=== PATIENT | female | born 1960 | race Caucasian/White ===

== ENCOUNTER 2016-08-04 10:23 | Emergency (ER) | payer OTHER ==
[~2016-08-04] VITALS: Ht 149.9 cm; Wt 79.5 kg
[2016-08-04 10:25] VITALS: BP 163/107
== END 2016-08-04 11:52 | disposition home or self-care (01) ==
LOC: ED 10:23
DX: S52.125A Nondisplaced fracture of head of left radius, initial encounter for closed fracture (principal); S52.124A Nondisplaced fracture of head of right radius, initial encounter for closed fracture; V87.8XXA Person injured in other specified noncollision transport accidents involving motor vehicle (traffic), initial encounter; Y93.55 Activity, bike riding; Y99.8 Other external cause status; Y92.89 Other specified places as the place of occurrence of the external cause

== ENCOUNTER 2016-12-05 11:20 | Emergency (ER) | payer OTHER ==
[2016-12-05 15:22] VITALS: BP 144/94
== END 2016-12-05 15:22 | disposition home or self-care (01) ==
LOC: ED 11:20
DX: M79.672 Pain in left foot (principal)
CPT/HCPCS: Q0092

== ENCOUNTER 2016-12-19 16:15 | Emergency (ER) | payer OTHER ==
[~2016-12-19] VITALS: Ht 149.9 cm; Wt 77.6 kg
[2016-12-19 17:30] LABS: BASOPHIL % 0.1 % (0-2); PLATELET COUNT 194 x10^3mcL (130-400); RED CELL DISTRIBUTION WIDTH 13.1 % (11.5-14.5)
[2016-12-19 17:38] LABS: CALCIUM 8.7 mg/dL (8.5-10.1); CARBON DIOXIDE 29.4 mmol/L (21-32); CHLORIDE SERUM 104 mmol/L (98-107); CREATININE SERUM 0.7 mg/dL (0.6-1.0); GFR1 > 60 mL/min; GLUCOSE SERUM 150 mg/dL (74-106); POTASSIUM SERUM 3.5 mmol/L (3.5-5.1); SODIUM SERUM 139 mmol/L (136-145)
[2016-12-19 17:40] VITALS: BP 125/92
[2016-12-19 17:43] LABS: ALKALINE PHOSPHATASE 102 U/L (46-116); ALT/SGPT 28 U/L (14-59); AST/SGOT 18 U/L (15-37); BILIRUBIN TOTAL 0.4 mg/dL (0.20-1.00); TOTAL PROTEIN, SERUM 7.5 g/dL (6.4-8.2)
[2016-12-19 17:44] LABS: ALBUMIN 3.3 g/dL (3.4-5.0)
== END 2016-12-19 18:00 | disposition home or self-care (01) ==
LOC: ED 16:15
PROVIDERS: Emergency Medicine
DX: R07.89 Other chest pain (principal)
CPT/HCPCS: 36415; 83880

== ENCOUNTER 2016-12-25 11:43 | Inpatient (IN) | payer OTHER ==
[~2016-12-25] VITALS: Ht 149.9 cm; Wt 81.2 kg
--- NOTE | 2016-12-25 12:19 | NUR ---
PT BIB SELF C/C LT BOTTOM OF FOOT WOUND NOTED BLISTER LOOKING PT STS X [address] CARLO CEDEÑO
[2016-12-25 12:58] LABS: BASOPHIL % 0.5 % (0-2); PLATELET COUNT 213 x10^3mcL (130-400)
--- NOTE | 2016-12-25 13:01 | NUR ---
STARTED ON IV ATB
[2016-12-25 13:06] LABS: CALCIUM 8.8 mg/dL (8.5-10.1); CARBON DIOXIDE 24.7 mmol/L (21-32); CHLORIDE SERUM 107 mmol/L (98-107); CREATININE SERUM 0.9 mg/dL (0.6-1.0); GFR1 > 60 mL/min; GLUCOSE SERUM 151 mg/dL (74-106); POTASSIUM SERUM 3.3 mmol/L (3.5-5.1); SODIUM SERUM 142 mmol/L (136-145)
--- NOTE | 2016-12-25 13:06 | NUR ---
IV ANTIBIOTIC INFUSION STARTED PER MD ORDERS SEE EMAR. PT AAOX4 NO DISTRESS. INST TO REPORT ANY ADVERSE EFFECT. CALL LIGHT IN REACH. IV SITE PATENT. PRIMARY NURSE NELIA RESUMING CARE OF PT.
[2016-12-25 13:11] LABS: ALBUMIN 3.5 g/dL (3.4-5.0); ALKALINE PHOSPHATASE 108 U/L (46-116); ALT/SGPT 44 U/L (14-59); AST/SGOT 25 U/L (15-37); BILIRUBIN TOTAL 0.45 mg/dL (0.20-1.00); TOTAL PROTEIN, SERUM 7.3 g/dL (6.4-8.2)
--- NOTE | 2016-12-25 14:38 | NUR ---
PLEASE ENTER FULL NAMES OF PLANT INSPECTOR/RN Patient data collected by (PLANT INSPECTOR):Ibis RAY Assessment reviewed and completed by (RN): Joy CORDOBA
--- NOTE | 2016-12-25 15:10 | NUR ---
RECEIVED REPORT FROM NELIA RICHARDS. PT IN NAD
--- NOTE | 2016-12-25 15:37 | NUR ---
REPORT GIVEN TO ARPITA GOMES
--- NOTE | 2016-12-25 15:45 | NUR ---
REC'D PT FROM ER VIA [facility]. PT IS AAOX4. TELE #2 SR. RESP EVEN AND UNLABORED. NO SOB NOTED. PT C/O 12/02 LEFT FOOT PAIN. WOUND NOTED TO BOTTOM OF LEFT FOOT. WOUND CULTURE OBTAINED. PICTURE TAKEN. IV NOTED TO LFA. INTACT AND PATENT. ORIENTED PT TO CALL LIGHT. BED IN LOWEST POSITION. WILL ENDORSE TO PRIMARY RN.
[2016-12-25 15:52] LABS: CHOLESTEROL/HDL RATIO 3.3; MAGNESIUM 1.8 mg/dL (1.8-2.4); PHOSPHOROUS 2.8 mg/dL (2.5-4.9)
[2016-12-25 15:58] VITALS: BP 137/84
[2016-12-25 16:06] LABS: FREE T4 0.82 ng/dL (0.76-1.46); FREE THYROXINE INDEX 2.2 ug/dL (1.4-4.5); T4(THYROXINE) 6.6 ug/dL (4.7-13.3)
[2016-12-25 16:40] LABS: T3 TOTAL 1.03 ng/mL
--- NOTE | 2016-12-25 18:42 | NUR ---
AAO TIMES 4. PT HAD A DEBRIDMENT OF LEFT FOOT BY PODIATRY. PHOTO WAS TAKEN BEFORE AND AFTER THE PROCEDURE. DRESSING TO LEFT FOOT CDI. TELE # 2 SR. IV SITE CDI. COOOERATIVE, ASKS A LOT OF QUESTIONS, REPEATEDLY. GETS ANXIOUS EASILY. COOPERATIVE.
--- NOTE | 2016-12-25 19:30 | NUR ---
PT IS ALERT AND ORIENTED X4. PLEASANT AND COOPERATIVE. CLEAR LUNGS ON AUSCULTATIONS BILATERALLY UPPER AND LOWER BASES. ROOM AIR. CXR-NEGATIVE. STILL HAS IV NS AT 100 ML PER HOUR INFUSING WELL IN THE LEFT FOREARM. S/P DEBRIDEMENT LEFT FOOT/WART/BLISTER, DRESSING INTACT WITH AYDE BANDAGE. US ARTERIAL AND VENOUS DONE BOTH LEGS, AWAITING RESULT. STILL GETTING CLEOCIN IV EVERY 6 HOURS NO ADVERSE REACTION NOTED. WILL CONTINUE TO MONITOR.
[2016-12-25 20:39] VITALS: BP 109/59
[2016-12-26 05:15] VITALS: BP 126/81
--- NOTE | 2016-12-26 05:28 | NUR ---
PT C/O MODERATE LEFT FOOT ULCER PAIN 09/01. MEDICATED WITH NORCO 1 TAB PO AZUL MONITOR. CLEOCIN IV ANTIBIOTIC INFUSING. TOLERATED WELL FOR INFECTED LEFT FOOT. PT AMBULATED AROUND THE HALLWAY AND ALSO TOLERATED WELL. STILL HAS IV NS AT 100 ML PER HOUR. WILL MONITOR.
[2016-12-26 06:10] LABS: BASOPHIL % 0.4 % (0-2); PLATELET COUNT 208 x10^3mcL (130-400); RED CELL DISTRIBUTION WIDTH 13.1 % (11.5-14.5)
[2016-12-26 06:13] LABS: CALCIUM 8.5 mg/dL (8.5-10.1); CARBON DIOXIDE 24.5 mmol/L (21-32); CHLORIDE SERUM 106 mmol/L (98-107); CREATININE SERUM 0.5 mg/dL (0.6-1.0); GFR1 > 60 mL/min; GLUCOSE SERUM 88 mg/dL (74-106); POTASSIUM SERUM 4.4 mmol/L (3.5-5.1); SODIUM SERUM 141 mmol/L (136-145)
--- NOTE | 2016-12-26 07:15 | NUR ---
RECEIVED Pt. AAOX4 RESPIRATIONS EVEN AND UNLABORED RA. DENIES PAIN/DISCOMFORT AT THIS TIME. NO DISTRESS NOTED. TELE IN PLACE HR 78. IVF RUNNING TO UV LFA PATENT AND INTACT. LEFT FOOT ACEWRAPPED CDI. BED LOW/LOCKED. CALL LIGHT IN REACH. WILL CONTINUE TO MONITOR.
--- NOTE | 2016-12-26 08:15 | NUR ---
MADE ROUNDS WITH DR. DELCID AND MEDICINE TEAM, Pt. TO HAVE BLE U.S. AND AGREED WITH PLAN OF CARE.
[2016-12-26 09:00] VITALS: BP 112/65
--- NOTE | 2016-12-26 09:22 | NUR ---
POST OP SHOE FOR LEFT FOOT GIVEN TO Pt.
[2016-12-26 12:49] VITALS: BP 139/82
[2016-12-26 13:25] LABS: microscopic required? NO
[2016-12-26 13:33] LABS: UA SPECIFIC GRAVITY 1.015 (1.005-1.035); urine erythrocyte NEGATIVE (NEGATIVE)
[2016-12-26 13:56] LABS: AMPHETAMINE QUAL UR POSITIVE (NEG <=1000)
--- NOTE | 2016-12-26 15:03 | NUR ---
Initial Nutrition Assessment Dx: infected left foot ulcer PMHx: Umbilical hernia PSHx: (x2), Umbilical hernia repair x2 Labs: (12/26) B, Cr:0.5L, (12/25) LDL:112H, A1c:6.1 Meds:Colace, Humulin, Lactinex, NS IV, Zofran, Heparin Diet:CCHO PO Intake:12/26: B:100%, L:100% Ht: 59in, 4'11" Wt: 179#, 81.22kg BMI: 36.2kg/m2 (obesity class II) IBW:98#, 44kg %IBW:183% adj bw:118#,54kg UBW:165-170# per pt Age:56 y/o female Food Allergies:NKFA Skin: 0.2 x 0.5 x 0.4 cm ulceration sub-5th metatarsal head with sanguinous drainage s/p I&D. Brandon: 20 Edema:None GI:active bowel sounds Last BM:12/24 Pt admitted with poss [id number] Stage II Left Foot Pressure Ulcer and Hypokalemia, 3.3, per H&P. Per bed huddle this morning, pt had irrigation and debridement of infected foot ulcer. Pt will be staying for continued IV antibiotics. During visit, observed pt laying in bed. Pt reports to having a good appetite with no c/o N/V/D/C. Pt requested DM diet education since pt is pre-diabetic. Problem with: N: No V:No D: No C:No Problems with: Chewing:No Swallowing: No Current appetite: Good Recent wt change:+9# %wt change:-5% Vitamin/Supplement use:No Special diet at home:Regular Physical activity:walking and biking Education: provided pt with diabetic diet education. Pt said she would read handout later because she wanted to take a nap. Estimated Nutritional Needs Based on adjusted body weight 54kg Energy: 1350-1620kcal/d (25-30-kcal/kg for wound healing) Protein: 58-81g/d (1.25-1.5g/kg for wound healing) Fluid: 1620ml/d (30ml/kg for wound healing ) or per doctor Nutrition Diagnosis 1. Increased nutrient needs related to altered skim integrity as evidenced by pt with Stage II left foot pressure ulcer. Intervention 1. Recommend Theragran MVI, Vit C 500mg BID and Zinc sulfate 220ml daily. Monitor/Evaluate Goal: PO intake at least 75% of estimated needs and wound healing Monitor: PO intake, Labs, GI function, skin integrity F/U in 3-5 days as moderate risk:12/29-
--- NOTE | 2016-12-26 15:03 | NUR ---
1. Recommend Theragran MVI, Vit C 500mg BID and Zinc sulfate 220ml daily for stage II pressure ulcer.
[2016-12-26 17:04] VITALS: BP 144/89
--- NOTE | 2016-12-26 18:06 | NUR ---
Pt. AAOX4 RESPIRATIONS EVEN AND UNLABORED MEDICATED WITH NORCO FOR C/O LEFT FOOT PAIN. LEFT FOOT AYDE WRAPPED CDI. TELE IN PLACE, NS RUNNING TO IV LEFT HAND PATENT AND INTACT. BED LOW/LOCKED. CALL LIGHT IN REACH.
--- NOTE | 2016-12-26 18:37 | NUR ---
Pt. HAD A RUN OF V TACH X 7 BEATS Pt. ASYMPTOMATIC BP 126/82 HR 74 O2SAT 95% R 16. DR. MCBRIDE MADE AWARE.
[2016-12-26 18:39] VITALS: BP 126/82
--- NOTE | 2016-12-26 19:30 | NUR ---
PT IS ALERT AND ORIENTED X 4. PLEASANT AND COOPERATIVE. LUNGS CLEAR ON AUSCULTAITONS BILATERALLY. ROOM AIR. CXR-NEGATIVE. PT IS AMBULATORY. PT IS RESTING RIGHT NOW. STILL HAS IV NS AT 100 ML PER HOUR INFUSING WELL IN THE LEFT HAND PATENT AND INTACT. STILL GETTING CLEOCIN IV EVERY 6 HOURS. NO ADVERSE REACTION NOTED IS FOR THE INFECTED LEFT PLNATAR OF THE FOOT ULCER. AND WRAPPED WITH AYDE BANDAGE. PT IS ALSO GETTING HEPARIN SQ. UDS RESULT + FOR METH. HAD NORCO AT 1805. S/P I AND D OF THE LEFT FOOT ULCER AND DR. CRUZ DRESSED THE WOUND THIS MORNING PER REPORT. WILL CONTINUE TO MONITOR.
[2016-12-26 20:49] VITALS: BP 106/55
--- NOTE | 2016-12-27 05:29 | NUR ---
PT IS RESTING. DENIES ANY PAIN OF LEFT FOOT ULCER. STILL HAS IV NS AT 100 ML PER HOUR INFUSING WELL IN THE RIGHT HAND. MADE COMFORTABLE IN BED. CALL LIGHT WITHIN EASY REACH.
[2016-12-27 05:35] VITALS: BP 121/81
[2016-12-27 06:04] LABS: BASOPHIL % 0.4 % (0-2); PLATELET COUNT 194 x10^3mcL (130-400); RED CELL DISTRIBUTION WIDTH 13.6 % (11.5-14.5)
[2016-12-27 06:20] LABS: CALCIUM 8.8 mg/dL (8.5-10.1); CARBON DIOXIDE 28.4 mmol/L (21-32); CHLORIDE SERUM 105 mmol/L (98-107); CREATININE SERUM 0.7 mg/dL (0.6-1.0); GFR1 > 60 mL/min; GLUCOSE SERUM 87 mg/dL (74-106); POTASSIUM SERUM 4.2 mmol/L (3.5-5.1); SODIUM SERUM 138 mmol/L (136-145)
--- NOTE | 2016-12-27 07:10 | NUR ---
RECEIVED Pt. AAOX4 RESPIRATIONS EVEN AND UNLABORED RA. DENIES PAIN/DISCOMFORT AT THIS TIME. NO DISTRESS NOTED. TELE IN PLACE HR 66 DENIES CHEST PAIN/PRESSURE. IVF RUNNING TO IV LEFT HAND PATENT AND INTACT. LEFT FOOT AYDE WRAPPED CDI. BED LOW/LOCKED. CALL LIGHT IN REACH.
--- NOTE | 2016-12-27 08:37 | NUR ---
DSG CHANGE DONE BY DR. ROSEN TO LEFT PLANTAR FOOT.
[2016-12-27 08:46] VITALS: BP 120/79
[2016-12-27 12:23] VITALS: BP 138/87
[2016-12-27 16:17] VITALS: BP 129/80
--- NOTE | 2016-12-27 18:24 | NUR ---
Pt. AAOX4, RESPIRATIONS EVEN AND UNLABORED RA. DENIES PAIN/DISCOMFORT AT THIS TIME. NO DISTRESS NOTED. TELE IN PLACE DENIES CHEST PAIN/PRESSURE. IVF RUNNING TO IV LEFT HAND PATENT AND INTACT. LEFT FOOT AYDE WRAPPED CDI. BED LOW/LCOKED. CALL LIGHT IN REACH. WILL CONTINUE TO MONITOR. CALL LIGHT IN REACH.
--- NOTE | 2016-12-27 19:30 | NUR ---
PT IS ALERT AND ORIENTED X 4. PLEASANT AND COOPERATIVE. CLEAR LUNG SOUNDS ON AUSCULTATIONS. LEFT FOOT POST OP SHOE. HEEL TOUCH WEIGHT BEARING TOLERATED. PT AMBULATORY. STILL HAS IV NS AT 100 ML PER HOUR INFUSING WELL IN THE LEFT HAND. PATENT AND INTACT. STILL GETTING CLEOCIN IV EVERY 6 HOURS. PT RECEIVED HEAPRIN SQ. PT'S UDS IS + FOR METH. NOTED MOSTLY EARLY TO SLEEP. DENIES ANY PAIN OR DISCOMFORT. MADE COMFORTABLE IN BED. CALL LIGHT WITHIN EASY REACH.
[2016-12-27 21:03] VITALS: BP 116/71
--- NOTE | 2016-12-28 05:01 | NUR ---
PT IS RESTING. STILL HAS IV NS AT 100 ML PER HOUR INFUSING WELL IN THE LEFT HAND. PATENT AND INTACT. AMBULATORY. MADE COMFORTABLE IN BED. CALL LIGHT WITHIN EASY REACH. DENIES ANY PAIN OF LEFT FOOT ULCER. WILL CONSTINUE TO MONITOR.
[2016-12-28 05:46] VITALS: BP 125/73
[2016-12-28 06:53] LABS: BASOPHIL % 0.5 % (0-2); PLATELET COUNT 204 x10^3mcL (130-400); RED CELL DISTRIBUTION WIDTH 13.4 % (11.5-14.5)
--- NOTE | 2016-12-28 07:05 | NUR ---
RECEIVED Pt. AAOX4, RESPIRATIONS EVEN AND UNLABORED DENIES PAIN/DISCOMFORT AT THIS TIME. NO DISTRESS NOTED TELE IN PLACE HR 71, DENIES CHEST PAIN/PRESSURE. IVF RUNNING TO IV LEFT HAND PATENT AND INTACT. LEFT FOOT DSG CDI. BED LOW/LOCKED. CALL LIGHT IN REACH. WILL CONTINUE TO MONITOR.
[2016-12-28 08:53] VITALS: BP 141/86
[2016-12-28] MEDS ORDERED: CLINDAMYCIN HC300 MG PO (09:13)
[2016-12-28] MEDS ORDERED: THERA TABS1 TAB PO (09:14)
[2016-12-28] MEDS ORDERED: VITC PO (09:14)
[2016-12-28] MEDS ORDERED: LAC PO (09:15)
[2016-12-28] MEDS ORDERED: ZINC SULFATE220 MG PO (09:15)
[2016-12-28] MEDS ORDERED: TYL325 PO (09:16)
--- NOTE | 2016-12-28 09:30 | NUR ---
MADE ROUNDS WITH DR. AGUIRRE AND MEDICINE TEAM, Pt. POSSIBLE DISCHARGE TODAY AND AGREED WITH PLAN OF CARE.
[2016-12-28 13:29] VITALS: BP 141/86
--- NOTE | 2016-12-28 13:51 | NUR ---
Pt. AAOX4 RESPIRATIONS EVEN AND UNLABORED DENIES PAIN/DISCOMFORT AT THIS TIME. NO DISTRESS NOTED. ALL RX AND DISCHARGE INSTRUCTIONS EXPLAINED AND VERBALIZED UNDERSTANDING. Pt. REFUSED FOR THIS NURSE TO TAKE PICTURE OF LEFT PLANATAR WOUND. Pt. INSTRUCTED TO KEEP DSG CLEAN AND DRI. DSG CDI TO LEFT FOOT DSG SUPPLIES PROVIDED. TELE RETURNED AND IV LEFT HAND REMOVED WITH CATH INTACT. Pt. LEFT WITH ALL BELONGINGS AND POST OP SHOE.
== END 2016-12-28 13:52 | disposition home or self-care (01) | DRG 380 ==
LOC: ED 11:43 → DU 14:54
PROVIDERS: Emergency Medicine; Family Medicine Sports Medicine; Student in an Organized Health Care Education/Training Program; ADMIT Family Medicine
PROC: 0JBR0ZZ Excision of Left Foot Subcutaneous Tissue and Fascia, Open Approach (ICD-10-PCS; principal; 2016-12-26)
DX: L89.892 Pressure ulcer of other site, stage 2 (principal); N17.0 Acute kidney failure with tubular necrosis; E87.6 Hypokalemia; R73.03 Prediabetes; E66.9 Obesity, unspecified; Z68.36 Body mass index [BMI] 36.0-36.9, adult
CPT/HCPCS: 82962; 83880; 84439; 90658; J1644; J2001; J2405; J3370; J3490; J7030; J7050; Q0092

== ENCOUNTER 2017-11-16 08:17 | Emergency (ER) | payer OTHER ==
[~2017-11-16] VITALS: Ht 149.9 cm; Wt 76.7 kg
[~2017-11-16 08:17] MED LIST: CLINDAMYCIN HC300 MG PO; LAC PO; THERA TABS1 TAB PO; TYL325 PO; VITC PO; ZINC SULFATE220 MG PO
[2017-11-16 08:27] VITALS: Ht 149.9 cm; Wt 76.7 kg
[2017-11-16 10:39] VITALS: BP 152/93
== END 2017-11-16 10:39 | disposition home or self-care (01) ==
LOC: ED 08:17
DX: R21 Rash and other nonspecific skin eruption (principal); F17.210 Nicotine dependence, cigarettes, uncomplicated
CPT/HCPCS: J1200; J7512